=== PATIENT | male | born 1970 | race Caucasian/White ===

== ENCOUNTER → 2016-05-14 | Outpatient (CLI) | payer OTHER ==
[~2016-05-14] MED LIST: CONRAY-43 43% 50ML VIAL (Q9960) As Ordered ONE; LIDOCAINE 1% MDV 20ML VIAL As Ordered ONE; LISI20TA3 PO; NEXI40CA PO; TRIAMCINOLONE ACETONIDE SUSP 40 MG/ML VIAL (J3301) As Ordered ONE
--- NOTE | 2016-05-14 18:21 | REP ---
RIGHT HIP ARTHROCENTESIS WITH MEDICATION INJECTION: The patient was referred for right hip arthrocentesis and medication injected. Informed consent was obtained. Under sterile conditions and after satisfactory administration of local anesthesia, using fluoroscopic guidance, a 22-gauge spinal needle is placed into the right hip joint. The needle placement in the joint is confirmed by injection of a tiny amount of radiographic contrast. Then a mixture of 9 mL of 1% lidocaine and 1 mL Kenalog 40 mg injected. The needle was removed and hemostasis obtained with no immediate complication. 32 seconds of fluoroscopy time utilized for the procedure. Signed by Gulshan Flores MD 05/14/2016 06:33 P
== END ==
LOC: M RADPRO 10:12
PROVIDERS: ATTEND Physician Assistant Medical
DX: M25.551 Pain in right hip (principal); M16.11 Unilateral primary osteoarthritis, right hip
CPT/HCPCS: 20610; 77002; J3301; Q9960

== ENCOUNTER → 2016-07-14 | Outpatient (CLI) | payer OTHER ==
[~2016-07-14] VITALS: Ht 182.9 cm; Wt 108.9 kg
[~2016-07-14] MED LIST changes: -CONRAY-43 43% 50ML VIAL (Q9960) As Ordered ONE; -LIDOCAINE 1% MDV 20ML VIAL As Ordered ONE; +LIDOCAINE 2% INJ 100 MG/5 ML SDV (FOR ANES.) As Ordered ONE; +NS 1,000 ML IV SCH; +PROPOFOL 200 MG/20 ML VIAL As Ordered ONE; -TRIAMCINOLONE ACETONIDE SUSP 40 MG/ML VIAL (J3301) As Ordered ONE
--- NOTE | 2016-07-14 13:25 | ROOR ---
Patient Name: Shabbir Haskins Procedure Date: 07/14/2016 1:06 PM Date of : 1970 Age: 46 Room: [facility] Gender: Male Note Status: Finalized Procedure: Colonoscopy to Cecum Indications: Screening in patient at increased risk: Colorectal cancer in father before age 60, Last colonoscopy: 2008 Providers: Sanket Robles MD Referring MD: SHELTON PEOPLES MD Requesting Provider: Medicines: Monitored Anesthesia Care Complications: No immediate complications. Procedure: Pre-Anesthesia Assessment: - The heart rate, respiratory rate, oxygen saturations, blood pressure, adequacy of pulmonary ventilation, and response to care were monitored throughout the procedure. The Colonoscope was introduced through the anus and advanced to the cecum, identified by appendiceal orifice and ileocecal valve. The colonoscopy was performed without difficulty. The patient tolerated the procedure well. The quality of the bowel preparation was excellent. Findings: The perianal and digital rectal examinations were normal. Non-bleeding internal hemorrhoids were found during retroflexion. The hemorrhoids were small and Grade I (internal hemorrhoids that do not prolapse). No other significant abnormalities were identified in a careful examination of the remainder of the colon. The exam was otherwise without abnormality on direct and retroflexion views. Impression: - Non-bleeding internal hemorrhoids. - The examination was otherwise normal on direct and retroflexion views. - No specimens collected. - The exam was otherwise normal to the cecum. Recommendation: - Patient has a contact number available for emergencies. The signs and symptoms of potential delayed complications were discussed with the patient. Return to normal activities tomorrow. Written discharge instructions were provided to the patient. - High fiber diet. - Discharge patient to home. - Continue present medications. - Repeat colonoscopy in 5 years for screening purposes. - Return to referring physician. - The findings and recommendations were discussed with the patient's family. Sanket Robles MD Sanket Robles MD 07/14/2016 1:24:39 PM This report has been signed electronically. Number of Addenda: 0 Note Initiated On: 07/14/2016 1:06 PM Estimated Blood Loss: Estimated blood loss: none.
[2016-07-14 13:43] VITALS: BP 128/86
== END | disposition home or self-care (01) ==
LOC: M OPP 11:06
PROVIDERS: ATTEND Internal Medicine Gastroenterology
DX: Z12.11 Encounter for screening for malignant neoplasm of colon (principal); K64.0 First degree hemorrhoids; Z80.0 Family history of malignant neoplasm of digestive organs; I10 Essential (primary) hypertension; M19.90 Unspecified osteoarthritis, unspecified site; M54.5 Low back pain; G47.30 Sleep apnea, unspecified; K21.9 Gastro-esophageal reflux disease without esophagitis; F17.210 Nicotine dependence, cigarettes, uncomplicated; Z91.010 Allergy to peanuts; Z79.899 Other long term (current) drug therapy
CPT/HCPCS: 99156; G0105

== ENCOUNTER 2016-09-18 17:53 | Emergency (ER) | payer OTHER ==
[~2016-09-18] VITALS: Ht 182.9 cm; Wt 112.1 kg
[2016-09-18 17:53] VITALS: BP 135/85
[~2016-09-18 17:53] MED LIST changes: -LIDOCAINE 2% INJ 100 MG/5 ML SDV (FOR ANES.) As Ordered ONE; -NS 1,000 ML IV SCH; -PROPOFOL 200 MG/20 ML VIAL As Ordered ONE
[2016-09-18] MEDS ORDERED: CIPROFLOXACIN 0.3% OPHTH SOLN 2.5ML OU ONE (18:30)
== END 2016-09-18 18:37 | disposition home or self-care (01) ==
LOC: M ED 18:34
DX: H10.33 Unspecified acute conjunctivitis, bilateral (principal); I10 Essential (primary) hypertension; K21.9 Gastro-esophageal reflux disease without esophagitis; Z87.891 Personal history of nicotine dependence; Z79.899 Other long term (current) drug therapy; Z91.010 Allergy to peanuts

== ENCOUNTER → 2019-01-05 | Outpatient (CLI) | payer OTHER ==
[~2019-01-05] MED LIST changes: +LISI20TA20 PO; -LISI20TA3 PO
--- NOTE | 2019-01-05 11:27 | REP ---
GASTRIC EMPTYING SCAN: Following the oral administration of 1.1 mCi of technetium-99m sulfur colloid in two scrambled eggs, images of the upper abdomen are performed for 90 minutes in the anterior and posterior projections. The activity is plotted on the graft and the T1/2 is calculated to be 64 minutes. This is normal. IMPRESSION: Normal gastric emptying. Electronically Signed by Gulshan Flores MD 01/09/2019 08:47 A
== END ==
LOC: M RAD 08:50
PROVIDERS: ATTEND Internal Medicine Gastroenterology
DX: R12 Heartburn (principal)

== ENCOUNTER 2022-01-09 00:18 | Emergency (ER) | payer OTHER ==
[~2022-01-09] VITALS: Ht 182.9 cm; Wt 116.4 kg
[~2022-01-09 00:18] MED LIST changes: -LISI20TA20 PO; +LISI20TA37 PO
[2022-01-09] MEDS ORDERED: OMEP40CA4 PO (00:27)
[2022-01-09] MEDS ORDERED: hydrALAZINE 20MG/ML 1ML VIAL (J0360 PER 20MG) IV ONE ×2 (01:45→04:25)
[2022-01-09 02:15] LABS: BASO % 0.8 % (0.0-1.0); EOS # 0.2 10^3/uL (0.0-0.5); HEMATOCRIT 44.6 % (42.0-52.0); HEMOGLOBIN 15.1 g/dl (13.5-17.5); LYMPH # 2.4 10^3/uL (1.5-5.0); LYMPH % 44.9 % (24.0-44.0); MEAN CORPUSCULAR HEMOGLOBIN 28.5 pg (27.0-33.0); MEAN CORPUSCULAR HGB CONC 33.9 g/dl (32.0-36.5); MEAN CORPUSCULAR VOLUME 84.3 fl (80.0-96.0); MONO # 0.5 10^3/uL (0.0-0.8); MONO % 8.7 % (2.0-8.0); NEUTROPHILS # 2.2 10^3/uL (1.5-8.5); NEUTROPHILS % 41.4 % (36.0-66.0); PLATELET COUNT, AUTOMATED 270 10^3/uL (150-450); RED BLOOD COUNT 5.29 10^6/uL (4.30-6.10); WHITE BLOOD COUNT 5.3 10^3/uL (4.0-10.0)
[2022-01-09] MEDS ORDERED: AMLO10TA PO (02:41)
[2022-01-09 02:43] LABS: BLOOD UREA NITROGEN 8 MG/DL (7-18); CALCIUM LEVEL 8.8 MG/DL (8.5-10.1); CARBON DIOXIDE LEVEL 26 MEQ/L (21-32); CHLORIDE LEVEL 107 MEQ/L (98-107); CREATININE FOR GFR 0.79 MG/DL (0.70-1.30); GLOMERULAR FILTRATION RATE > 60.0 (>56); GLUCOSE, FASTING 104 MG/DL (70-100); MAGNESIUM LEVEL 2.4 MG/DL (1.8-2.4); SODIUM LEVEL 136 MEQ/L (136-145)
[2022-01-09] MEDS ORDERED: CHLORTHALIDONE 25 MG TAB PO ONE (03:50)
[2022-01-09] MEDS ORDERED: CHLO25TA PO (04:53)
[2022-01-09 04:59] VITALS: BP 174/115
[2022-01-09 05:16] VITALS: BP 157/91
== END 2022-01-09 05:24 | disposition home or self-care (01) ==
LOC: M ED 00:18
DX: I10 Essential (primary) hypertension (principal); R94.31 Abnormal electrocardiogram [ECG] [EKG]; K21.9 Gastro-esophageal reflux disease without esophagitis; Z91.010 Allergy to peanuts; Z79.811 Long term (current) use of aromatase inhibitors; Z79.83 Long term (current) use of bisphosphonates; Z79.899 Other long term (current) drug therapy
CPT/HCPCS: 36415; 80048; 83735; 85025; 93005; 96374; 96376; 99285; J0360

== ENCOUNTER 2022-12-16 08:32 | Day surgery (SDC) | payer OTHER ==
[~2022-12-16] VITALS: Ht 182.9 cm; Wt 118.9 kg
[~2022-12-16 08:32] MED LIST changes: +AMLO10TA PO; +CHLO25TA PO; +LIDOCAINE 2% 100MG/5ML SDV (FOR ANES.) As Ordered ONE; +METO200T28 PO; +NS 1,000 ML IV ONE; +OMEP40CA4 PO; +RAMI1CAP24 PO; +ROSU40TA4 PO; +propofoL 200 MG/20 ML VIAL As Ordered ONE
[2022-12-16 10:22] VITALS: TEMP 97.5
[2022-12-16 10:40] VITALS: BP 184/126; O2SAT 99
== END 2022-12-16 10:40 | disposition home or self-care (01) ==
LOC: M SDC 08:32
PROVIDERS: ATTEND Internal Medicine Gastroenterology
DX: D12.0 Benign neoplasm of cecum (principal); R12 Heartburn; K29.70 Gastritis, unspecified, without bleeding; K22.89 Other specified disease of esophagus; D12.3 Benign neoplasm of transverse colon; F17.200 Nicotine dependence, unspecified, uncomplicated; I10 Essential (primary) hypertension; E78.5 Hyperlipidemia, unspecified; N40.0 Benign prostatic hyperplasia without lower urinary tract symptoms; Z79.899 Other long term (current) drug therapy; G47.33 Obstructive sleep apnea (adult) (pediatric); Z91.010 Allergy to peanuts